=== PATIENT | male | born 1995 | race Caucasian/White ===

== ENCOUNTER → 2020-09-13 | Outpatient (CLI) | payer SELFPAY ==
[~2020-09-13] MED LIST: MOTRIN800 MG PO; TYLENOL W/CODEI1 TA2 PO
== END | disposition home or self-care (01) ==
LOC: COVID19 08:12
PROVIDERS: ATTEND Student in an Organized Health Care Education/Training Program
DX: U07.1 COVID-19 (principal)

== ENCOUNTER 2023-09-21 07:41 | Emergency (ER) | payer SELFPAY ==
[~2023-09-21] VITALS: Wt 99.8 kg
[2023-09-21 07:55] VITALS: BP 120/75
[2023-09-21 08:44] LABS: BASO # 0.1 10*3/uL (0.0-0.1); BASO % 0.8 % (0.0-1.0); EOS # 0.2 10*3/uL (0.0-0.4); EOS % 3.2 % (1.0-4.0); HEMATOCRIT 42.8 % (42.0-52.0); LYMPH # 0.9 10*3/uL (1.3-4.4); LYMPH % 14.6 % (27.0-41.0); MEAN CELL VOLUME 85.4 fl (80.0-94.0); MEAN CORPUSCULAR HGB 30.3 pg (27.0-31.0); MEAN CORPUSCULAR HGB CONC 35.5 g/dl (33.0-37.0); MEAN PLATELET VOLUME 10.9 fl (9.6-12.3); MONO # 0.6 10*3/uL (0.1-1.0); MONO % 8.7 % (3.0-9.0); NEUT # 4.6 10*3/uL (2.3-7.9); NEUT % 72.4 % (47.0-73.0); PLATELET COUNT AUTOMATED 192 10*3/uL (130-400); RED BLOOD COUNT 5.01 10*6/uL (4.50-5.90); RED CELL DISTRI WIDTH 13.6 % (0-14.5); WHITE BLOOD COUNT 6.3 10*3/uL (4.8-10.8)
[2023-09-21 09:05] LABS: ALKALINE PHOSPHATASE 74 U/L (46-116); BUN 12 mg/dl (9-23); CHLORIDE 106 mmol/L (98-107); LIPASE 46 U/L (12-53); POTASSIUM 4.4 mmol/L (3.4-5.1); SGPT/ALT 61 U/L (5-49); TOTAL PROTEIN 7.1 gm/dL (6.0-8.0)
[2023-09-21] MEDS ORDERED: METRONIDAZOLE500 M1 PO (10:03)
[2023-09-21] MEDS ORDERED: LEVOFLOXACIN500 MG PO (10:03)
== END 2023-09-21 10:25 | disposition home or self-care (01) ==
LOC: ED 07:41
PROVIDERS: Emergency Medicine
DX: K11.20 Sialoadenitis, unspecified (principal); Z88.0 Allergy status to penicillin; Z88.8 Allergy status to other drugs, medicaments and biological substances

== ENCOUNTER 2024-10-20 14:39 | Emergency (ER) | payer OTHER ==
[~2024-10-20] VITALS: Ht 167.6 cm; Wt 86.2 kg
[~2024-10-20 14:39] MED LIST changes: +LEVOFLOXACIN500 MG PO; +METRONIDAZOLE500 M1 PO
[2024-10-20 15:02] VITALS: BP 137/87
[2024-10-20] MEDS ORDERED: Bacitracin Zinc 14 GM TUBE T ONE (15:20)
[2024-10-20] MEDS ORDERED: Tdap Vaccine 0.5 ML SYR (Adult Vaccine) IM ONE (15:20)
[2024-10-20] MEDS ORDERED: VIBRAMYCIN100 MG PO (15:20)
== END 2024-10-20 16:17 | disposition home or self-care (01) ==
LOC: ED 14:39
DX: T20.20XA Burn of second degree of head, face, and neck, unspecified site, initial encounter (principal); T31.0 Burns involving less than 10% of body surface; Z88.0 Allergy status to penicillin; Z88.8 Allergy status to other drugs, medicaments and biological substances; X08.8XXA Exposure to other specified smoke, fire and flames, initial encounter; Y93.89 Activity, other specified; Y92.009 Unspecified place in unspecified non-institutional (private) residence as the place of occurrence of the external cause; Y99.8 Other external cause status

== ENCOUNTER → 2024-10-23 | Outpatient (CLI) | payer OTHER ==
[~2024-10-23] MED LIST changes: +VIBRAMYCIN100 MG PO
== END | disposition home or self-care (01) ==
LOC: WOUNDCARE 10-22 15:42
PROVIDERS: ATTEND Nurse Practitioner Family
DX: T20.34XA Burn of third degree of nose (septum), initial encounter (principal); T20.32XA Burn of third degree of lip(s), initial encounter; T20.20XA Burn of second degree of head, face, and neck, unspecified site, initial encounter; T31.0 Burns involving less than 10% of body surface; Z79.899 Other long term (current) drug therapy; X08.8XXA Exposure to other specified smoke, fire and flames, initial encounter; Y93.89 Activity, other specified; Y92.89 Other specified places as the place of occurrence of the external cause; Y99.8 Other external cause status

== ENCOUNTER 2024-12-05 12:08 | Emergency (ER) | payer OTHER ==
[~2024-12-05] VITALS: Ht 167.6 cm; Wt 81.6 kg
== END 2024-12-05 13:02 | disposition home or self-care (01) ==
LOC: ED 12:08
DX: H92.01 Otalgia, right ear (principal); R22.0 Localized swelling, mass and lump, head; Z88.0 Allergy status to penicillin; Z88.5 Allergy status to narcotic agent